=== PATIENT | female | born 1990 | race Caucasian/White ===

== ENCOUNTER 2017-02-26 13:32 | Emergency (ER) | payer MEDICAID ==
[~2017-02-26] VITALS: Ht 172.7 cm; Wt 57.0 kg
[2017-02-26] MEDS ORDERED: PRED10TA PO (15:02)
[2017-02-26] MEDS ORDERED: triamcinolone acetonide 40mg/ml inj IM ONE (15:05)
[2017-02-26 15:19] VITALS: BP 117/78
== END 2017-02-26 15:20 | disposition home or self-care (01) ==
LOC: ER 13:33
DX: L23.7 Allergic contact dermatitis due to plants, except food (principal); Z87.891 Personal history of nicotine dependence; Z88.2 Allergy status to sulfonamides; Z88.8 Allergy status to other drugs, medicaments and biological substances
CPT/HCPCS: 96372; 99283; J3301

== ENCOUNTER 2017-02-27 12:10 | Emergency (ER) | payer MEDICAID ==
[~2017-02-27] VITALS: Ht 170.2 cm; Wt 54.4 kg
[~2017-02-27 12:10] MED LIST: PRED10TA PO
[2017-02-27] MEDS ORDERED: methylPREDNISolone sod succ 125mg/2ml vial IV ONE (13:30)
[2017-02-27 13:57] VITALS: BP 134/84
== END 2017-02-27 13:58 | disposition home or self-care (01) ==
LOC: ER 12:10
DX: L23.7 Allergic contact dermatitis due to plants, except food (principal); Z88.2 Allergy status to sulfonamides
CPT/HCPCS: 96374; 99284; J2930

== ENCOUNTER 2017-08-06 14:16 | Emergency (ER) | payer MEDICAID ==
[~2017-08-06] VITALS: Ht 165.1 cm; Wt 45.0 kg
[2017-08-06 15:12] LABS: CLARITY,URINE CLEAR (Clear); COLOR,URINE YELLOW (Yellow); GLUCOSE, URINE NEGATIVE (Neg); KETONES,URINE NEGATIVE (Neg); LEUKOCYTE ESTERASE ,URINE NEGATIVE (Neg); NITRITES, URINE NEGATIVE (Neg); OCCULT BLOOD,URINE SMALL (Neg); PROTEIN,URINE NEGATIVE (Neg); UROBILINOGEN,URINE 0.2 E.U/dL (0.2-1.0)
[2017-08-06 15:18] LABS: BASOPHILS % (AUTO) 0.7 % (0-1); EOSINOPHILS # (AUTO) 0.1 X10'3 (0-0.9); EOSINOPHILS % (AUTO) 1.6 % (0-6); HEMATOCRIT 31.8 % (35.0-45.0); HEMOGLOBIN 10.9 g/dl (12.0-16.0); LYMPHOCYTES # (AUTO) 1.6 X10'3 (1.1-4.8); LYMPHOCYTES % (AUTO) 22.6 % (21-51); MEAN CORPUSCULAR HEMOGLOBIN 33.6 PG (27.0-31.0); MEAN CORPUSCULAR HGB CONC 34.1 % (33.0-36.5); MEAN CORPUSCULAR VOLUME 98.5 FL (78-98); MEAN PLATELET VOLUME 8.1 FL (7.4-10.4); MONOCYTES # (AUTO) 0.6 X10'3 (0-0.9); MONOCYTES % (AUTO) 7.9 % (2-12); NEUTROPHILS # (AUTO) 4.7 X10'3 (1.8-7.7); NEUTROPHILS % (AUTO) 67.2 % (42-75); PLATELET COUNT 217 X10'3 (140-440); RED BLOOD COUNT 3.23 X10'6 (4.20-5.60); RED CELL DISTRIBUTION WIDTH 12.6 % (11.5-14.5)
[2017-08-06 15:20] LABS: UA COLLECTION TYPE CLN CATCH MIDSTREAM
[2017-08-06 15:26] LABS: BACTERIA,URINE NONE SEEN /HPF (Neg); MUCUS STRANDS MODERATE /LPF (Neg); RBC,URINE 0-2 /HPF (0-2); SQUAMOUS EPITHELIAL CELL,UR FEW /LPF (FEW); WBC,URINE 0-4 /HPF (0-4)
[2017-08-06 15:35] LABS: ALANINE AMINOTRANSFERASE 21 U/L (12-78); ALBUMIN 3.7 G/DL (3.4-5.0); ALBUMIN/GLOBULIN RATIO 1.2 (1.1-1.5); ALKALINE PHOSPHATASE 45 IU/L (46-116); ANION GAP 9 (8-16); ASPARTATE AMINO TRANSFERASE 10 U/L (10-37); BILIRUBIN,TOTAL 0.4 MG/DL (0.1-1.0); BLOOD UREA NITROGEN 8 MG/DL (7-18); BUN/CREATININE RATIO 11.9 (6.6-38.0); CALCIUM 8.5 MG/DL (8.5-10.1); CHLORIDE 106 MMOL/L (99-107); CREATININE 0.67 MG/DL (0.40-0.90); GLUCOSE 99 MG/DL (70-104); LIPASE 56 U/L (73-393); POTASSIUM 3.8 MMOL/L (3.5-5.1); SODIUM 141 MMOL/L (135-145); TOTAL CARBON DIOXIDE 25.9 MMOL/L (24-32); TOTAL PROTEIN 6.9 G/DL (6.4-8.2); eGFR > 90 ML/MIN
[2017-08-06 15:52] LABS: HCG SERUM QL POSITIVE
[2017-08-06 16:47] VITALS: BP 111/67
== END 2017-08-06 17:10 | disposition home or self-care (01) ==
LOC: ER 14:17
DX: O26.891 Other specified pregnancy related conditions, first trimester (principal); R10.2 Pelvic and perineal pain; R10.30 Lower abdominal pain, unspecified; F12.90 Cannabis use, unspecified, uncomplicated; F17.200 Nicotine dependence, unspecified, uncomplicated; Z3A.01 Less than 8 weeks gestation of pregnancy; Z88.2 Allergy status to sulfonamides; Z88.8 Allergy status to other drugs, medicaments and biological substances; Z79.899 Other long term (current) drug therapy
CPT/HCPCS: 36415; 80053; 81001; 83690; 84702; 84703; 85025; 99284

== ENCOUNTER 2025-02-21 19:05 | Emergency (ER) | payer MEDICAID ==
[~2025-02-21] VITALS: Ht 167.6 cm; Wt 54.2 kg
[2025-02-21 19:28] LABS: MEAN PLATELET VOLUME 7.8 FL (7.4-10.4); RED CELL DISTRIBUTION WIDTH 12.6 % (11.5-14.5)
--- NOTE | 2025-02-21 19:36 | RADIOLOGY REPORT ---
EXAM: DI CHEST,SINGLE VIEW HISTORY: CP TECHNIQUE: 1 view of the chest COMPARISON: None FINDINGS/IMPRESSION: LUNGS: No pleural effusion, consolidation, or pneumothorax. MEDIASTINUM: Unremarkable. BONES: No acute osseous abnormality. OTHER: None.
[2025-02-21 19:43] LABS: CREATININE 0.71 MG/DL (0.40-0.90); TOTAL CARBON DIOXIDE 28.1 MMOL/L (24-32); eCRCL 97 ML/MIN; eGFR > 90 ML/MIN
[2025-02-21 19:44] LABS: PRO BRAIN NATRIURETIC PEPTIDE < 30 PG/ML (0-125)
--- NOTE | 2025-02-21 21:59 | Physician Documentation ---
History of Present Illness ~ Chief Complaint: Syncope Stated Complaint: FALL/HEAD PAIN Time Seen by MD: 22:29 Primary Medical Doctor: jeannie beth [facility] This is a 34-year-old female who presents after a witnessed loss of consciousness onset after feeling lightheaded [place], patient reports she stood up [place] get out of the [place] when she lost consciousness striking the back of her head on a rock. Patient was witnessed have loss of consciousness by her who reports she was in and out of consciousness for about a minute before becoming alert again. Patient reports no chest pain or shortness of breath prior to loss of consciousness. Patient reports headache and nausea without vomiting. Patient reports light sensitiv ity. Reports no other acute symptoms or concerns including no other injuries. Medication Reconciliation Allergies: Coded Allergies: sulfamethoxazole (Unverified Allergy, Unknown, 02/26/17) trimethoprim (Unverified Allergy, Unknown, 02/26/17) Scheduled Prednisone (Prednisone), 0 PO DAILY Past Medical History Past Medical History: No Pertinent History Past Surgical History: noncontributory Alcohol Use: Occasionally Drug Use: marijuana Lives with: Family Lives In: Home Review of Systems ROS As stated above in the HPI, otherwise all systems are reviewed and negative. Physical Exam Vital Signs: Temperature: 98.1, Heart Rate: 83, Respiratory Rate: 16, BP: 132/81, Pulse Oximetry: 100, Weight: 54.200 Oxygen Flow Rate: 0 Physical Exam General: Patient is awake, alert, oriented x4 in no acute distress and well appearing.~ Head: Normocephalic and atraumatic. Eyes: Conjunctival normal. EOMI. PERRL. ENT: Mucous membranes moist. Neck: Supple, trachea is midline. Chest: Clear to auscultation bilaterally without rales, rhonchi, or wheezes. There is no accessory muscle use or retractions. Cardiac: RRR without murmurs, gallops, or rubs. Abd: Soft, nondistended, nontender, with normoactive bowel sounds. No guarding, rebound, or rigidity. Extremities: Normal strength. Normal range of motion. No deformities or edema. No calf tenderness. Back: No midline spinal or CVA tenderness. Skin: Warm and dry with no significant rash appreciated. Neuro: Cranial nerves II-XII grossly intact. No focal neuro deficits. Patient ambulating without difficulty. Progress Results/Orders Results/Orders Orders - JEAN SIMENTAL MD Chest,Single View (02/21/25 19:27) Monitor (02/21/25 19:08) Saline Lock (02/21/25 19:08) Oxygen (02/21/25 19:08) Electrocardiogram (02/21/25 19:08) Completed Orders - JEAN SIMENTAL MD Chest,Single View (02/21/25 19:27) Cbc/Diff (02/21/25 19:08) BMP (02/21/25 19:08) PBNP (02/21/25 19:08) Hs Troponin I W Calculations (02/21/25 19:08) Hs Troponin I W Calculations (02/21/25 21:08) Hs Troponin I W Calculations (02/21/25 22:08) Vital Signs 02/21/25 02/21/25 02/21/25 02/21/25 19:30 22:13 22:46 23:01 Temp 98.1 98.1 Pulse 83 78 70 Resp 16 16 14 B/P (MAP) 132/81 126/75 (92) 118/68 Pulse Ox 100 99 98 O2 Flow Rate 0 Laboratory Tests Test 02/21/25 19:13 02/21/25 20:53 02/21/25 22:15 White Blood Count 8.5 Red Blood Count 4.12 L Hemoglobin 13.8 Hematocrit 40.8 Mean Corpuscular Volume 99.1 H Mean Corpuscular Hemoglobin 33.6 H Mean Corpuscular Hemoglobin Concent 33.9 Red Cell Distribution Width 12.6 Platelet Count 244 Mean Platelet Volume 7.8 Neutrophils (%) (Auto) 73.7 Lymphocytes (%) (Auto) 18.8 L Monocytes (%) (Auto) 5.9 Eosinophils (%) (Auto) 0.4 Basophils (%) (Auto) 1.2 H Neutrophils # (Auto) 6.3 Lymphocytes # (Auto) 1.6 Monocytes # (Auto) 0.5 Eosinophils # (Auto) 0.0 Basophils # (Auto) 0.1 CBC Comment Sodium Level 139 Potassium Level 4.1 Chloride Level 104 Carbon Dioxide Level 28.1 Anion Gap 7 L Blood Urea Nitrogen 11 Creatinine 0.71 Estimated GFR/1.73 m2 > 90 BUN/Creatinine Ratio 15.5 Glucose Level 114 H Calcium Level 8.9 Troponin I High Sensitivity 4 < 4 L < 4 L Pro-B-Type Natriuretic Peptide < 30 Albumin 4.3 Chemistry Comments Troponin I High Sens Percent Delta Troponin I Hi Sens Absolute Change EKG/XRAY/CT/US/VASC/MRI EKG : Intepreting Monitor?: No Additional Comment 1913: Sinus rhythm rate of 78, normal axis, no ST changes. No shortened MO, no delta wave, no HOCM. EKG interpreted by Dr. Simental. Medical Decision Making Additional information obtaine: N/A Findings Patient presents to the emergency room status post syncopal episode that has per HPI. Differentials include but are not limited to vasovagal, cardiac arrhythmia, seizure, dehydration therefore emergent labs and imaging ordered. Labs and imaging reassuring. Troponins negative x3. Given patient's history she likely suffering a vagal response. She is considered low cardiovascular risk. EKGs reassuring he had no history of sudden cardiac deaths in the family. Given drinking alcohol in hot [place] with prodromal symptoms and no chest pain or palpitations I believe she is suffering from a vagal episode and that has tried to be sat up before her episode resolved leading to additional syncopal episodes. She has passed the road test that has nontoxic appearing and he had not feel requires investigation into cardiac etiology at this time however I did explain to patient that has that has happens again she will need an investigation. Differential Dx:Considerations: Include: anemia, CVA, cerebral occlusion, cerebral thrombosis, dehydration, dysrhythmia, electrolyte disorder, encephalopathy, hypoglycemia, hypovolemia, labyrinthitis, Meniere's disease, myocardial infarction, pulmonary embolus, TIA, vasovagal, VBI, vertigo central, vertigo peripheral, vestibular neuronitis, other Departure Time of Disposition: 22:56 Disposition: 01 HOME / SELF CARE / HOMELESS Impression: Primary Impression: Vaso vagal episode Condition: Stable Discharge Instructions: Dehydration, Adult, [id number] Additional Instructions: Follow up with PCP for further evaluation and care. Please return to the ED if you develop any new or worsening symptoms. Referrals: NO PRIMARY CARE PROVIDER (PCP) Education Educated: Patient Educated regarding: diagnosis, treatment, need for follow up Signature Scribe Signature: No scribe Attestation: The note accurately reflects work and decisions made by me.Jean Simental MD 02/22/25 04:03 CHARLIE SMITH Feb 21, 2025 21:59 JEAN SIMENTAL MD Feb 21, 2025 22:30 JASON REICH Feb 21, 2025 22:57
[2025-02-21 23:01] VITALS: BP 118/68; PULSE 70; RESP 14; TEMP 98.1; O2SAT 98
--- NOTE | 2025-02-22 06:02 | ELECTROCARDIOGRAPH REPORT ---
[facility] Test Date: 2025-02-21 Test Time: 19:14:42 Pat Name: FLEX KEBEDE Department: EMERGENCY ROOM Room: Gender: F Or Manager: BETTIE : 1990 Requested By: WENCESLAO NAPIER Order Number: [id number] Reading MD: Dr. Lj Martinez Measurements Intervals [place] Rate: 78 P: 91 MN: 176 QRS: 86 QRSD: 69 T: 20 QT: 377 QTc: 430 Interpretive Statements Atrial-paced complexes Borderline T wave abnormalities Electronically Signed On 02-22-2025 6:18:[address] Lj Martinez Please click the below link to view image of tracing.
== END 2025-02-21 23:02 | disposition home or self-care (01) ==
LOC: ER 19:06
DX: R55 Syncope and collapse (principal); F12.90 Cannabis use, unspecified, uncomplicated; Z88.2 Allergy status to sulfonamides; Z95.0 Presence of cardiac pacemaker; Z72.89 Other problems related to lifestyle; Z79.899 Other long term (current) drug therapy; Z88.8 Allergy status to other drugs, medicaments and biological substances
CPT/HCPCS: 36415; 71045; 80048; 83880; 84484; 85025; 93005; 99285